=== PATIENT | female | born 1995 | race Caucasian/White ===

== ENCOUNTER 2022-02-06 00:10 | Emergency (ER) | payer OTHER ==
[2022-02-06 00:16] VITALS: BP 98/62; PULSE 70; TEMP 98.6; BMI 24.5
[2022-02-06 02:01] LABS: BASO % 0.4 % (0-2.0); EOS % 0.1 % (0-4.5); HEMATOCRIT 38.5 % (32.4-45.2); HEMOGLOBIN 13.1 GM/dL (10.7-15.3); LYMPH % 29.2 % (8-40); MCHC 33.9 g/dl (32.0-36.0); MEAN CELL VOLUME 88.4 fl (80-96); MEAN PLT VOLUME 9.9 fl (7.5-11.1); MONO % 7.5 % (3.8-10.2); NEUT % 62.8 % (42.8-82.8); PLATELET COUNT 216 10^3/uL (134-434); RBC 4.35 M/mm3 (3.60-5.2); RDW 13.4 % (11.6-15.6); WHITE BLOOD COUNT 8.6 K/mm3 (4.0-10.0)
[2022-02-06 02:02] LABS: PH,URINE 5.5 (5.0-8.0); URINE APPEARANCE CLOUDY; URINE BILIRUBIN NEGATIVE (NEGATIVE); URINE COLOR YELLOW; URINE GLUCOSE (UA) NEGATIVE (NEGATIVE); URINE KETONE 1+ (NEGATIVE); URINE LEUK ESTERASE NEGATIVE (NEGATIVE); URINE NITRITE NEGATIVE (NEGATIVE); URINE PROTEIN TRACE (NEGATIVE); URINE UROBILINOGEN 0.2 mg/dL (0.2-1.0)
[2022-02-06 02:07] LABS: HCG,QUALITATIVE URINE Negative
[2022-02-06 02:29] LABS: BLOOD UREA NITROGEN 13.9 mg/dL (7-18); CALCIUM 8.9 mg/dL (8.5-10.1)
[2022-02-06 02:32] LABS: CREATININE 0.6 mg/dL (0.55-1.3)
[2022-02-06 02:34] LABS: BILIRUBIN,TOTAL 0.7 mg/dL (0.2-1); TOT PROT 7.8 g/dl (6.4-8.2)
== END 2022-02-06 03:05 | disposition home or self-care (01) ==
LOC: FER 00:10
DX: R42 Dizziness and giddiness (principal); R55 Syncope and collapse
CPT/HCPCS: 36415; 80053; 81003; 81025; 84703; 85025; 93005; 99284-25

== ENCOUNTER 2022-10-24 18:09 | Emergency (ER) | payer OTHER ==
[2022-10-24 18:39] VITALS: BP 110/69; PULSE 63; RESP 18; TEMP 97.7; BMI 26.4
[2022-10-24 19:00] LABS: HEMATOCRIT 35.7 % (32.4-45.2); HEMOGLOBIN 12.6 G/dL (10.7-15.3); MCHC 35.2 g/dl (32.0-36.0); MEAN CELL VOLUME 88.1 fl (80-96); PLATELET COUNT 219.7 10^3/uL (134-434); RBC 4.05 10^6/uL (3.60-5.2); RDW 13.8 % (11.6-15.6); WHITE BLOOD COUNT 8.4 10^3/uL (4.0-10.8)
[2022-10-24 19:19] LABS: ALBUMIN 3.9 g/dl (3.4-5.0); BILIRUBIN,TOTAL 0.9 mg/dl (0.2-1); CALCIUM 8.7 mg/dl (8.5-10); CREATININE 0.3 mg/dl (0.55-1.3); MAGNESIUM 1.6 mg/dL (1.8-2.4); TOT PROT 7.2 g/dl (6.4-8.2)
[2022-10-24] MEDS ORDERED: LACTATED RINGERS SOLUTION 1000 ML INFUS.BAG IV ONE (19:27)
[2022-10-24 19:32] LABS: PLATELET ESTIMATE ADEQUATE
== END 2022-10-24 21:57 | disposition home or self-care (01) ==
LOC: FER 18:09
DX: O41.8X10 Other specified disorders of amniotic fluid and membranes, first trimester, not applicable or unspecified (principal); O20.0 Threatened abortion; R10.30 Lower abdominal pain, unspecified; Z32.01 Encounter for pregnancy test, result positive
CPT/HCPCS: 36415; 76817-TC; 80053; 81003; 83735; 84702; 84703; 85027; 86850; 86900; 86901; 87086; 99284-25